=== PATIENT | male | born 1960 | race Caucasian/White ===

== ENCOUNTER → 2016-11-22 | Outpatient (CLI) | payer BC ==
--- NOTE | 2016-11-22 14:58 | DIAGNOSTIC IMAGING REPORT ---
RIGHT SHOULDER 3 VIEWS CLINICAL HISTORY: Multifocal arthralgias. Right shoulder injury. FINDINGS: 3 views of the right shoulder are obtained. No prior studies are available for comparison at the time of dictation. The skeletal structures are well mineralized. No fracture or dislocation is identified. The glenohumeral joint is well-maintained. Productive change is noted at the acromioclavicular articulation. No erosive change is suggested. The overlying soft tissues are within normal limits. Imaged right upper lobe lung parenchyma appears clear. IMPRESSION: Mild degenerative change as above. No acute bony abnormality is seen in the right shoulder. Electronically signed by: Srinivas Juarez M.D. 11/22/2016 2:57 PM Dictated Date/Time: 11/22/2016 2:56 PM
--- NOTE | 2016-11-22 15:02 | DIAGNOSTIC IMAGING REPORT ---
LEFT SHOULDER MIN 2 VIEWS ROUTINE CLINICAL HISTORY: Work related injury. Arthralgias of multiple joints. COMPARISON: None FINDINGS: Alignment of left shoulder is anatomic. There is no fracture or suspicious lesion. There is mild AC joint arthrosis. No erosions are identified. There is minimal joint space narrowing and osteophytosis of the left glenohumeral joint. IMPRESSION: 1. No acute fracture or dislocation of the left shoulder. 2. 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 Electronically signed by: Tristen Arreguin M.D. 11/22/2016 3:00 PM Dictated Date/Time: 11/22/2016 2:59 PM
== END | disposition home or self-care (01) ==
LOC: C.RAD1850 14:29
PROVIDERS: ATTEND Internal Medicine Rheumatology
DX: M25.511 Pain in right shoulder (principal); M25.512 Pain in left shoulder; M25.50 Pain in unspecified joint; M79.1 Myalgia

== ENCOUNTER → 2016-12-08 | Outpatient (CLI) | payer BC ==
--- NOTE | 2016-12-08 08:40 | DIAGNOSTIC IMAGING REPORT ---
MRI OF THE LEFT SHOULDER NO CONTRAST CLINICAL HISTORY: Left shoulder pain. Myalgias. Arthralgias. COMPARISON STUDY: Conventional radiographic study dated 11/22/2016 FINDINGS: Imaging was performed in sagittal, coronal, and axial planes. The bicipital tendon appears normal. There is no subluxation. No labral tears are visualized. There are no areas of marrow replacement to indicate occult fracture. There are moderate degenerative changes within the acromioclavicular joint. There are moderate arthritic changes present within the glenohumeral joint. There is abnormal signal within the supraspinatus tendon. There is a partial-thickness tear. No full-thickness tear is visualized. There is no tendinous retraction. IMPRESSION: 1. Tendinopathy and partial thickness supraspinatus tear. No evidence of a full-thickness tear. No tendinous retraction 2. Degenerative changes within the glenohumeral joint and acromioclavicular joint. Electronically signed by: Jc Richardson M.D. 12/08/2016 8:39 AM Dictated Date/Time: 12/08/2016 8:36 AM
--- NOTE | 2016-12-08 10:51 | DIAGNOSTIC IMAGING REPORT ---
WHOLE-BODY NUCLEAR BONE SCAN CLINICAL HISTORY: Multifocal arthralgias. COMPARISON STUDY: Radiographs of the shoulders dated 11/22/2016. TECHNIQUE: Three hours following the IV administration of 27 mCi of technetium 99m MDP, whole body nuclear bone scan was performed in the anterior and posterior projections. FINDINGS: There is no abnormal osseous tracer deposition identified typical in appearance for bony metastatic disease. Low-level foci of typically degenerative uptake are identified in the shoulders, sternoclavicular joints, hips, knees, and left ankle. There is expected excreted activity within the renal collecting system and bladder. IMPRESSION: 1. No acute osseous abnormality is suggested. 2. Foci of low level and typically degenerative activity as above. Electronically signed by: Srinivas Juarez M.D. 12/08/2016 10:49 AM Dictated Date/Time: 12/08/2016 10:47 AM
== END ==
LOC: C.NUCL 06:55
PROVIDERS: ATTEND Internal Medicine Rheumatology
DX: M25.511 Pain in right shoulder (principal); M25.512 Pain in left shoulder; M79.1 Myalgia